=== PATIENT | male | born 2000 | race Hispanic/Latino ===

== ENCOUNTER 2020-09-17 17:56 | Emergency (ER) | payer OTHER, SELFPAY ==
[~2020-09-17] VITALS: Ht 165.1 cm; Wt 70.4 kg
[2020-09-17 17:57] VITALS: BP 129/76
[2020-09-17] MEDS ORDERED: ACETAMINOPHEN 500 MG TAB PO ONE (18:45)
[2020-09-17] MEDS ORDERED: IBUPROFEN 600MG TAB PO ONE (18:45)
[2020-09-17] MEDS ORDERED: PENICILLIN V POTASSIUM 500 MG TAB PO ONE (18:45)
[2020-09-17] MEDS ORDERED: PENI500T PO (18:56)
== END 2020-09-17 19:03 | disposition home or self-care (01) ==
LOC: M ED 17:56
DX: J02.0 Streptococcal pharyngitis (principal); R07.0 Pain in throat

== ENCOUNTER 2021-11-26 11:10 | Emergency (ER) | payer OTHER ==
[~2021-11-26] VITALS: Ht 167.6 cm; Wt 78.3 kg
[~2021-11-26 11:10] MED LIST: PENI500T PO
[2021-11-26] MEDS ORDERED: NAPR-849 PO (11:47)
[2021-11-26] MEDS ORDERED: ASPI-1 PO (11:47)
[2021-11-26] MEDS ORDERED: IBUP200C25 PO (11:47)
[2021-11-26] MEDS ORDERED: LIDOCAINE 5% (LIDODERM) PATCH TD ONE (18:45)
[2021-11-26] MEDS ORDERED: KETOROLAC 30 MG/ML 1ML VIAL IM ONE (18:45)
[2021-11-26] MEDS ORDERED: methocarbamoL 500 MG TAB PO ONE (18:45)
[2021-11-26] MEDS ORDERED: METH-1164 PO (18:52)
[2021-11-26] MEDS ORDERED: LIDO5DIS41 TOP (18:52)
[2021-11-26] MEDS ORDERED: KETO10TAB PO (18:53)
[2021-11-26 19:21] VITALS: BP 148/89
[2021-11-26] MEDS ORDERED: **NOTE PATIENT COMMENT** MISC XX SCH (21:00)
== END 2021-11-26 20:02 | disposition home or self-care (01) ==
LOC: M ED 11:10
DX: M51.26 Other intervertebral disc displacement, lumbar region (principal); F17.200 Nicotine dependence, unspecified, uncomplicated
CPT/HCPCS: 96372; 99283; J1885

== ENCOUNTER 2021-12-27 13:46 | Emergency (ER) | payer OTHER ==
[~2021-12-27] VITALS: Ht 165.1 cm; Wt 74.1 kg
[~2021-12-27 13:46] MED LIST changes: +ASPI-1 PO; +IBUP200C25 PO; +KETO10TAB PO; +LIDO5DIS41 TOP; +METH-1164 PO; +NAPR-849 PO
[2021-12-27 15:33] LABS: GC DNA AMPLIFICATION NEGATIVE (NEGATIVE)
[2021-12-27 15:52] VITALS: BP 116/78
== END 2021-12-27 16:07 | disposition home or self-care (01) ==
LOC: M ED 13:46
DX: R30.0 Dysuria (principal)

== ENCOUNTER → 2022-03-16 | Outpatient (REF) | LOC: M PLAIMG 11:45 | PROVIDERS: ATTEND Internal Medicine | DX: R06.02 Shortness of breath (principal) ==